=== PATIENT | male | born 1975 | race Two or more races ===

== ENCOUNTER 2021-04-13 16:20 | Emergency (ER) | payer SELFPAY ==
[~2021-04-13] VITALS: Ht 170.2 cm; Wt 83.5 kg
--- NOTE | 2021-04-13 16:26 | NUR ---
TO ER BED 9, [id number] frm home, daughter called concern about mulltipple seizure episode today, hx of seizure since 4 years ago, aaox3, breathing even and non labored, connected to monitor
--- NOTE | 2021-04-13 16:33 | NUR ---
DR MARKHAM AT BEDSIDE FOR EVAL
--- NOTE | 2021-04-13 16:34 | NUR ---
daughter lacho left contact # [phone]
[2021-04-13] MEDS: LEVETIRACETAM (500MG) 500 MG in IV NS 0.9% 100 ML IV ONE (16:45)
[2021-04-13 16:49] LABS: BASOPHILS % (AUTO) 0.3 % (0.0-2.0); HEMATOCRIT 52 % (39-51); HEMOGLOBIN 17.4 g/dL (13.5-17.5); LYMPHOCYTES # (AUTO) 1.8 K/uL (0.8-4.8); LYMPHOCYTES % (AUTO) 14.9 % (20.0-44.0); MEAN CORPUSCULAR HGB CONC 34 g/dl (31.0-36.0); MEAN CORPUSCULAR VOLUME 95 fL (80-96); MONOCYTES # (AUTO) 0.6 K/uL (0.1-1.30); MONOCYTES % (AUTO) 5.3 % (2.0-12.0); NEUTROPHILS # (AUTO) 9.5 K/uL (1.8-8.9); NEUTROPHILS % (AUTO) 79.5 % (43.0-81.0); PLATELET COUNT (AUTO) 263 K/uL (150-450); RED BLOOD CELL COUNT(AUTO) 5.47 MIL/uL (4.5-6.0); WHITE BLOOD COUNT (AUTO) 11.9 K/uL (4.3-11.0)
[2021-04-13 16:57] LABS: CALCIUM, SERUM 8.1 mg/dL (8.5-10.1); CARBON DIOXIDE 31 mmol/L (21-32); CHLORIDE 102 mmol/L (98-107); GLUCOSE 135 mg/dL (74-106); POTASSIUM 3.5 mmol/L (3.5-5.1); SODIUM SERUM 142 mmol/L (136-145); UREA NITROGEN, BLOOD 15 mg/dL (7-18)
[2021-04-13 17:04] LABS: ALANINE AMINOTRANSFERASE 106 U/L (12-78); ALBUMIN 3.2 g/dL (3.4-5.0); ALCOHOL, BLOOD < 3 mg/dL (0-0); ALKALINE PHOSPHATASE 68 U/L (46-116); ASPARTATE AMINOTRANSFERASE 25 U/L (15-37); BILIRUBIN,DIRECT 0.1 mg/dL (0.0-0.2); BILIRUBIN,TOTAL 0.3 mg/dL (0.2-1.0); TOTAL PROTEIN, SERUM 7.2 g/dL (6.4-8.2)
--- NOTE | 2021-04-13 17:33 | NUR ---
SISTER ADAM WILL LOAN ANALYST PATIENT, ETA 1800HR
--- NOTE | 2021-04-13 18:28 | NUR ---
IV removed. Catheter intact and site benign. Pressure and 4x4 applied to site. No bleeding noted.Patient discharged to home in stable condition. Written and verbal after care instructions given. Patient verbalizes understanding of instruction. Patient sister iSria picked up patient.
[2021-04-13 18:30] VITALS: BP 144/82
== END 2021-04-13 18:30 | disposition home or self-care (01) ==
LOC: ER 16:22
DX: R56.9 Unspecified convulsions (principal)
CPT/HCPCS: 36415; 80048; 80076; 80320; 85025; 96365; 99284; J1953; J7030; G0480

== ENCOUNTER 2021-05-05 11:28 | Inpatient (IN) | payer MEDICAID ==
[~2021-05-05] VITALS: Ht 170.2 cm; Wt 79.4 kg
--- NOTE | 2021-05-05 11:39 | NUR ---
[id number], had seizure episode lasted 1 min, +oral trauma, Versed 5mg given by paramedics. On room air, breathing evenly. Connected to the monitor and pulse ox. kept comfortable, will continue to monitor accordingly.
[2021-05-05] MEDS ORDERED: LEVE500T9 PO (11:43)
[2021-05-05] MEDS ORDERED: LEVETIRACETAM (500MG) 500 MG in IV NS 0.9% 100 ML IV ONE (12:00)
--- NOTE | 2021-05-05 12:09 | NUR ---
THE PATIENT IS RESPONSIVE TO VERBAL STIMULI. IN ROOM AIR. RESPIRATION REGULAR AND UNLABORED. WILL CONTINUE TO MONITOR THE PATIENT.
[2021-05-05 12:14] LABS: BASOPHILS % (AUTO) 0.5 % (0.0-2.0); EOSINOPHILS % (AUTO) 1.3 % (0.0-6.0); HEMATOCRIT 43 % (39-51); HEMOGLOBIN 14.7 g/dL (13.5-17.5); LYMPHOCYTES # (AUTO) 2.9 K/uL (0.8-4.8); LYMPHOCYTES % (AUTO) 36.8 % (20.0-44.0); MEAN CORPUSCULAR HGB CONC 34 g/dl (31.0-36.0); MEAN CORPUSCULAR VOLUME 93 fL (80-96); MONOCYTES # (AUTO) 0.5 K/uL (0.1-1.30); MONOCYTES % (AUTO) 6.5 % (2.0-12.0); NEUTROPHILS # (AUTO) 4.3 K/uL (1.8-8.9); NEUTROPHILS % (AUTO) 54.9 % (43.0-81.0); PLATELET COUNT (AUTO) 173 K/uL (150-450); RED BLOOD CELL COUNT(AUTO) 4.68 MIL/uL (4.5-6.0); WHITE BLOOD COUNT (AUTO) 7.8 K/uL (4.3-11.0)
[2021-05-05 12:33] LABS: CALCIUM, SERUM 8.3 mg/dL (8.5-10.1); CREATININE 1.3 mg/dL (0.6-1.3); POTASSIUM 3.2 mmol/L (3.5-5.1)
[2021-05-05] MEDS ORDERED: IV NS 0.9% 1,000 ML IV ONE (13:30)
[2021-05-05] MEDS ORDERED: LORAZEPAM INJ 2 MG/ML VIAL IV ONE ×2 (13:30→17:30)
[2021-05-05] MEDS ORDERED: LORAZEPAM INJ 2 MG/ML VIAL ONE ×2 (13:31→17:10)
[2021-05-05] MEDS ORDERED: OXCA300T15 PO (13:36)
--- NOTE | 2021-05-05 13:47 | NUR ---
MOVE SHEET SUBMITTED AND CALLED FOR TELE BED.
--- NOTE | 2021-05-05 13:50 | NUR ---
THE PATIENT IS TAKEN TO CT
[2021-05-05 14:55] LABS: SERUM AMMONIA 20 umol/L (11-32)
[2021-05-05 14:56] LABS: ALCOHOL, BLOOD < 3 mg/dL (0-0)
--- NOTE | 2021-05-05 15:03 | NUR ---
GANESH CALLED UPDATED ABOUT PT BEING ADMITTED.
--- NOTE | 2021-05-05 15:08 | NUR ---
[facility] CALLED ENVIRONMENTAL INTERN PAGED.
--- NOTE | 2021-05-05 16:45 | NUR ---
going to 310.1
--- NOTE | 2021-05-05 17:03 | NUR ---
REPORT GIVEN TO NURSE CHATTERJEE
--- NOTE | 2021-05-05 17:29 | NUR ---
THE PATIENT IS TRANSFERED TO [facility] PER [facility] POLICY.
[2021-05-05 17:53] LABS: BILIRUBIN,URINE NEGATIVE (NEGATIVE); COLOR,URINE YELLOW (YELLOW); LEUKOCYTE ESTERASE ,URINE NEGATIVE (NEGATIVE); NITRITE, URINE NEGATIVE (NEGATIVE); PH,URINE 7.5 (5.0-8.0); PROTEIN,URINE NEGATIVE (NEGATIVE); UGLUCOSE NEGATIVE (NEGATIVE); UROBILINOGEN,URINE 0.2 EU/dL (0.2)
[2021-05-05] MEDS ORDERED: HALOPERIDOL LACTATE INJ 5 MG/ML VIAL IM PRN (18:30)
[2021-05-05] MEDS ORDERED: MAG HYDROX/AL HYDROX/SIMETH 30 ML UDC PO PRN (19:00)
[2021-05-05] MEDS ORDERED: ZOLPIDEM TARTRATE 5 MG TABLET PO PRN (19:00)
[2021-05-05] MEDS ORDERED: Z GUARD REMEDY 2 OZ OINT TP PRN (19:00)
[2021-05-05] MEDS ORDERED: ACETAMINOPHEN 325 MG TABLET PO PRN (19:00)
[2021-05-05] MEDS ORDERED: ONDANSETRON HCL/PF 4 MG/2 ML VIAL IVP PRN (19:00)
[2021-05-05] MEDS ORDERED: MAGNESIUM HYDROXIDE 30 ML UDC PO PRN (19:00)
--- NOTE | 2021-05-05 19:21 | NUR ---
SPORTS THERAPIST CLOSING NOTES RECEIVED Pt A/O X1. Pt IS CONFUSED. BREATHING IS UNLABORED ON ROOM AIR. UNABLE TO ASSESS GAIT AT THIS TIME. PER FAMILY, Pt HAS BEEN HOSPITALIZED FOR SIMILAR REASONS LAST MONTH. Pt HAS NO IV AT THIS TIME, HE PULLED IT OUT. AWAITING FOR A MIDLINE. SAFETY MEASURES ARE IN PLACE, BED IS LOCKED AND IN LOWEST POSITION, SIDE RAILS UP X 3, BED ALARM IS ON, BED SIDE TABLE AND CALL LIGHT WITHIN REACH. WILL ENDORSE TO ONCOMING SHIFT.
--- NOTE | 2021-05-05 19:40 | NUR ---
FIELD EDUCATION DIRECTOR OPENING NOTES RECEIVED PATIENT LAYING AWAKE IN BED. A/O X1. PATIENT WITH REGULAR AND UNLABORED BREATHING ON ROOM AIR, TOLERATED WELL. NO SIGNS AND SYMPTOMS OF DISTRESS NOTED. NO COMPLAIN OF PAIN OR DISCOMFORT AT THIS TIME. NAIMA MIDLINE G #18 SL. ACCESS PATENT AND INTACT. SAFETY PRECAUTIONS ENFORCED WITH BED LOCKED AND AT LOWEST POSITION. SIDERAILS UP. CALL LIGHT WITHIN REACH AT ALL TIMES. WILL CONTINUE TO MONITOR PATIENT.
[2021-05-05] MEDS: LORAZEPAM INJ 2 MG/ML VIAL IV PRN (19:51)
[2021-05-05] MEDS: LEVETIRACETAM (500MG) 500 MG in IV NS 0.9% 100 ML IV SCH (19:57)
[2021-05-05 20:00] VITALS: BP 129/89
[2021-05-06] VITALS: BP 128/80
[2021-05-06] MEDS: LORAZEPAM INJ 2 MG/ML VIAL IV PRN ×3 (00:22→09:56)
[2021-05-06 04:00] VITALS: BP 125/79
[2021-05-06 06:56] LABS: CALCIUM, SERUM 8.4 mg/dL (8.5-10.1); CREATININE 0.8 mg/dL (0.6-1.3); MAGNESIUM 1.9 mg/dL (1.8-2.4); PHOSPHORUS 3.1 mg/dL (2.5-4.9); POTASSIUM 3.2 mmol/L (3.5-5.1)
[2021-05-06 06:58] LABS: BASOPHILS % (AUTO) 0.4 % (0.0-2.0); EOSINOPHILS % (AUTO) 0.7 % (0.0-6.0); HEMATOCRIT 43 % (39-51); HEMOGLOBIN 14.8 g/dL (13.5-17.5); LYMPHOCYTES # (AUTO) 1.4 K/uL (0.8-4.8); LYMPHOCYTES % (AUTO) 22.9 % (20.0-44.0); MEAN CORPUSCULAR HGB CONC 35 g/dl (31.0-36.0); MEAN CORPUSCULAR VOLUME 92 fL (80-96); MONOCYTES # (AUTO) 0.5 K/uL (0.1-1.30); MONOCYTES % (AUTO) 7.8 % (2.0-12.0); NEUTROPHILS # (AUTO) 4.2 K/uL (1.8-8.9); NEUTROPHILS % (AUTO) 68.2 % (43.0-81.0); PLATELET COUNT (AUTO) 150 K/uL (150-450); RED BLOOD CELL COUNT(AUTO) 4.62 MIL/uL (4.5-6.0); WHITE BLOOD COUNT (AUTO) 6.1 K/uL (4.3-11.0)
--- NOTE | 2021-05-06 06:59 | NUR ---
DIAMOND WHEEL EDGER CLOSING NOTES PATIENT STILL LAYING AWAKE IN BED. A/O X1. PATIENT WITH REGULAR AND UNLABORED BREATHING ON ROOM AIR, TOLERATED WELL. NO SIGNS AND SYMPTOMS OF DISTRESS NOTED. NO COMPLAIN OF PAIN OR DISCOMFORT AT THIS TIME. NAIMA MIDLINE G #18 SL. ACCESS PATENT AND INTACT. SAFETY PRECAUTIONS ENFORCED WITH BED LOCKED AND AT LOWEST POSITION. SIDERAILS UP. CALL LIGHT WITHIN REACH AT ALL TIMES. WILL ENDORSE CONTINUITY OF CARE TO DAY SHIFT NURSE.
[2021-05-06 07:00] LABS: THYROID STIMULATING HORMONE 2.291 uIU/mL (0.358-3.74)
--- NOTE | 2021-05-06 07:30 | NUR ---
PT RECEIVED RESTING COMFORTABLY IN BED. NO S/S OR C/O PAIN OR DISTRESS NOTED. SIDE RAILS UP X2, CALL LIGHT LEFT WITHIN REACH. WILL CONTINUE PLAN OF CARE
[2021-05-06] MEDS: LEVETIRACETAM (500MG) 500 MG in IV NS 0.9% 100 ML IV SCH ×2 (08:24→20:06)
[2021-05-06 08:34] VITALS: BP 152/88
[2021-05-06] MEDS ORDERED: PANTOPRAZOLE 40 MG VIAL IV SCH (09:00)
[2021-05-06] MEDS ORDERED: POTASSIUM CHLORIDE 20 MEQ POWDER PACKET PO SCH ×2 (10:00→12:00)
[2021-05-06 12:10] VITALS: BP 139/87
[2021-05-06 16:01] VITALS: BP 143/97
--- NOTE | 2021-05-06 19:30 | NUR ---
BUSINESS DEVELOPMENT CONSULTANT NOTE RECEIVED PATIENT IN BED. A/OX1 ONLY TO NAME, ANSWER WITH YES OR NO, BUT DOES NOT UNDERSTAND CONCEPT. ALGERIAN SPEAKING. NO S/S OF APPARENT DISTRESS. NOT EXHIBITING VIA FLACC. TELE MONITOR READING SR-ST. D5 / NS RUNNING AT THIS TIME. BILA. SOFT WRIST RESTRAINTS IN PLACE. SAFETY IN PLACE. NEEDS ATTENDED AT THE MOMENT. WILL CONTINUE WITH PLAN OF CARE FOR PATIENT.
--- NOTE | 2021-05-06 19:42 | NUR ---
CHANGE OF SHIFT REPORT PATIENT RESTING COMFORTABLY IN BED. NO S/S OR C/O PAIN OR DISTRESS NOTED. SIDE RAILS UP X2, CALL LIGHT LEFT WITHIN REACH. PT KEPT CLEAN, DRY, AND COMFORTABLE. NO SIGNIFICANT CHANGES SINCE PREVIOUS SHIFT. REPORT GIVEN TO SUKH CANO.
[2021-05-06 20:00] VITALS: BP 154/96
[2021-05-07] VITALS: BP 136/90
[2021-05-07 04:00] VITALS: BP 139/98
--- NOTE | 2021-05-07 05:44 | NUR ---
BLOCKERS SKIVER NOTE PATIENT REFUSES LAB WORKS AT THIS TIME.
[2021-05-07] MEDS: LEVETIRACETAM (500MG) 500 MG in IV NS 0.9% 100 ML IV SCH (07:16)
--- NOTE | 2021-05-07 07:55 | NUR ---
RN OPENING NOTES PATIENT IS IN BED RESTING, AWAKE. A/O X1. NO S/S OF PAIN NOTES AT THIS TIME. ON ROOM AIR, NO DISTRESS OR SHORTNESS OF BREATH NOTED. IV NAIMA MIDLINE INTACT AND PATENT. PATIENT HAVE AN EXTERNAL ADJUNCT INSTRUCTOR CHEMISTRY WITH CURRENT READING OF OF A S.R. AND HR OF 91. FALL AND SAFETY MEASURES IN PLACE, BED ALARM ON, BED IN LOW AND LOCK POSITION, CALL LIGHT AND TABLE WITHIN EASY REACH, SIDE RAILS UP X2. WILL CONTINUE TO MONITOR.
[2021-05-07 08:00] VITALS: BP 121/93
[2021-05-07 08:42] LABS: BASOPHILS % (AUTO) 0.3 % (0.0-2.0); HEMATOCRIT 44 % (39-51); LYMPHOCYTES # (AUTO) 1.3 K/uL (0.8-4.8); MEAN CORPUSCULAR HGB CONC 34 g/dl (31.0-36.0); MEAN CORPUSCULAR VOLUME 92 fL (80-96); MONOCYTES # (AUTO) 0.5 K/uL (0.1-1.30); MONOCYTES % (AUTO) 7.1 % (2.0-12.0); NEUTROPHILS # (AUTO) 5.2 K/uL (1.8-8.9); NEUTROPHILS % (AUTO) 73.6 % (43.0-81.0); PLATELET COUNT (AUTO) 153 K/uL (150-450); RED BLOOD CELL COUNT(AUTO) 4.76 MIL/uL (4.5-6.0); WHITE BLOOD COUNT (AUTO) 7.1 K/uL (4.3-11.0)
[2021-05-07] MEDS: PANTOPRAZOLE 40 MG/PACK PACK PO SCH (08:58)
[2021-05-07 09:06] LABS: ALBUMIN 3.3 g/dL (3.4-5.0); BILIRUBIN,DIRECT 0.2 mg/dL (0.0-0.2); BILIRUBIN,TOTAL 0.9 mg/dL (0.2-1.0); CALCIUM, SERUM 8.1 mg/dL (8.5-10.1); CREATININE 0.7 mg/dL (0.6-1.3); MAGNESIUM 1.8 mg/dL (1.8-2.4); PHOSPHORUS 3.3 mg/dL (2.5-4.9); POTASSIUM 3.6 mmol/L (3.5-5.1); TOTAL PROTEIN, SERUM 7.6 g/dL (6.4-8.2)
[2021-05-07] MEDS: THIAMINE HCL 100 MG TABLET PO SCH (11:39)
[2021-05-07] MEDS: IV D5/0.45 NACL 1,000 ML IV PRN (11:39)
[2021-05-07] MEDS: CHLORDIAZEPOXIDE HCL 25 MG CAPSULE PO SCH ×3 (11:40→21:07)
[2021-05-07] MEDS: FOLIC ACID 1 MG TABLET PO SCH (11:40)
[2021-05-07 16:00] VITALS: BP 129/90
--- NOTE | 2021-05-07 18:47 | NUR ---
RN CLOSING NOTES PATIENT IS IN BED RESTING, AWAKE. A/O X1. NO S/S OF PAIN NOTES AT THIS TIME. ON ROOM AIR, NO DISTRESS OR SHORTNESS OF BREATH NOTED. IV NAIMA MIDLINE INTACT AND PATENT. PATIENT HAVE AN EXTERNAL EMAIL ADMINISTRATOR WITH CURRENT READING OF S.R. AND HR OF 91. ALL SCHEDULED MEDS ADMINISTERED. RESTRAINTS IN PLACED, CHECKED EVERY 2 HOURS AND REPOSITION PATIENT. FALL AND SAFETY MEASURES IN PLACE, BED ALARM ON, BED IN LOW AND LOCK POSITION, CALL LIGHT AND TABLE WITHIN EASY REACH, SIDE RAILS UP X2. WILL ENDORSE TO NETWORK FIREWALL ENGINEER.
[2021-05-07] MEDS: LEVETIRACETAM SOL (5 ML) 100 MG/ML UDC PO SCH (19:36)
--- NOTE | 2021-05-07 19:38 | NUR ---
STAGE RIGGER NOTE RECEIVED PATIENT IN BED. A/OX1 ONLY TO NAME, ANSWER WITH YES OR NO, BUT DOES NOT UNDERSTAND CONCEPT. IRISH SPEAKING. NO S/S OF APPARENT DISTRESS ON ROOM AIR. DENIES PAIN. TELE MONITOR READING SR 80'S. D5 1/2 NS RUNNING AT THIS TIME @75CC/HR. BILA. SOFT WRIST RESTRAINTS IN PLACE. SAFETY IN PLACE. NEEDS ATTENDED AT THE MOMENT. WILL CONTINUE WITH PLAN OF CARE FOR PATIENT.
[2021-05-07 20:00] VITALS: BP 137/88
[2021-05-08] VITALS: BP 141/78
[2021-05-08] MEDS: IV D5/0.45 NACL 1,000 ML IV PRN (02:11)
[2021-05-08 04:00] VITALS: BP 139/68
[2021-05-08] MEDS: CHLORDIAZEPOXIDE HCL 25 MG CAPSULE PO SCH ×2 (06:16→12:03)
[2021-05-08] MEDS: LEVETIRACETAM SOL (5 ML) 100 MG/ML UDC PO SCH (07:43)
--- NOTE | 2021-05-08 07:47 | NUR ---
SUPPLIER QUALITY SPECIALIST NOTE RECEIVED PATIENT ON BED, AWAKE, ABLE TO MAKE NEEDS KNOWN. ON ROOM AIR, TOLERATING WELL, NO SOB NOTED. [place] SPEAKING, BUT UNDERSTANDS SOME MALAWIAN. NO S/S OF ACUTE DISTRESS. DENIES PAIN OR DISCOMFORT AT THIS TIME. TELE MONITOR READING SR 77'S. WITH NAIMA ML #18G, D5 1/2 NS RUNNING AT @75CC/HR. SAFETY IN PLACE. BED LOCKED AND IN LOWEST POSITION, SR UP X2, CALL LIGHT PLACED WITHIN EASY REACH. WILL CONTINUE TO MONITOR PT.
[2021-05-08 08:00] VITALS: BP 130/98
[2021-05-08] MEDS: PANTOPRAZOLE 40 MG/PACK PACK PO SCH (08:19)
[2021-05-08] MEDS: THIAMINE HCL 100 MG TABLET PO SCH (08:20)
[2021-05-08] MEDS: FOLIC ACID 1 MG TABLET PO SCH (08:20)
[2021-05-08] MEDS ORDERED: CHLO25CA22 PO (13:46)
--- NOTE | 2021-05-08 15:30 | NUR ---
LIBRARY SERVICES COORDINATOR NOTES PATIENT DISCHARGE HOME IN STABLE CONDITION. A/O X3, VERBALLY RESPONSIVE AND ABLE TO MAKE NEEDS KNOWN. V/S TAKEN, STABLE AND RECORDED. ALL BELONGINGS ACCOUNTED FOR. IV ACCESS ON NAIMA ML REMOVED, NO BLEEDING NOTED, COVERED WITH DRY PRESSURE DRESSING. TELE MONITOR REMOVED. ARM NAME BAND REMOVED. DISCHARGE INSTRUCTIONS AND HEALTH TEACHINGS PROVIDED TO PATIENT WITH VERBALIZATION OF UNDERSTANDING. PATIENT LEFT UNIT AT 1525 AMBULATORY ACCOMPANIED BY JUAN CAMPBELL TO THE LOBBY. PATIENT PICKED UP BY SISTER ADAM. CN AWARE OF DISCHARGE.
== END 2021-05-08 17:45 | disposition home or self-care (01) | DRG 101 ==
LOC: ER 11:29 → TELE 16:50
PROVIDERS: ADMIT Student in an Organized Health Care Education/Training Program; ATTEND Nurse Practitioner Acute Care
PROC: 05H533Z Insertion of Infusion Device into Right Subclavian Vein, Percutaneous Approach (ICD-10-PCS; principal; 2021-05-05)
PROC: B546ZZA Ultrasonography of Right Subclavian Vein, Guidance (ICD-10-PCS; 2021-05-05)
DX: G40.509 Epileptic seizures related to external causes, not intractable, without status epilepticus (principal); F10.239 Alcohol dependence with withdrawal, unspecified; E87.2 Acidosis; E87.1 Hypo-osmolality and hyponatremia; G40.909 Epilepsy, unspecified, not intractable, without status epilepticus; E87.6 Hypokalemia; Z85.841 Personal history of malignant neoplasm of brain; Z91.19 Patient's noncompliance with other medical treatment and regimen; Z20.822 Contact with and (suspected) exposure to COVID-19; I10 Essential (primary) hypertension; Y90.0 Blood alcohol level of less than 20 mg/100 ml
CPT/HCPCS: 36415; 70450-TC; 71045-TC; 80048-TC; 80076-TC; 82140-TC; 82962-TC; 83735-TC; 84100-TC; 84443-TC; 85025-TC; 87081-TC; 92526; 92611-TC; C9113; C9803; G0378; G0480; J1630; J1953; J2060; J3490; J7030; J7050